=== PATIENT | male | born 2000 | race Caucasian/White ===

== ENCOUNTER 2024-04-04 09:41 | Emergency (ER) | payer OTHER ==
[2024-04-04 09:51] VITALS: BP 126/92; PULSE 86; RESP 18; TEMP 97.2; BMI 29.9
[2024-04-04] MEDS ORDERED: KETOROLAC TROMETHAMINE 30 MG/1 ML VIAL ONE (10:18)
[2024-04-04] MEDS ORDERED: DEXAMETHASONE SOD PHOSPHATE 10 MG/1 ML VIAL ONE (10:18)
[2024-04-04] MEDS: DEXAMETHASONE SOD PHOSPHATE 10 MG/1 ML VIAL IM ONE (10:23)
[2024-04-04] MEDS: KETOROLAC TROMETHAMINE 30 MG/1 ML VIAL IM ONE (10:23)
== END 2024-04-04 11:59 | disposition home or self-care (01) ==
LOC: JERFT 09:41
PROC: 3E023GC Introduction of Other Therapeutic Substance into Muscle, Percutaneous Approach (ICD-10-PCS; principal; 2024-04-04)
PROC: 3E0133Z Introduction of Anti-inflammatory into Subcutaneous Tissue, Percutaneous Approach (ICD-10-PCS; 2024-04-04)
DX: M43.16 Spondylolisthesis, lumbar region (principal); M51.26 Other intervertebral disc displacement, lumbar region; Z20.822 Contact with and (suspected) exposure to COVID-19
CPT/HCPCS: 0241U-QW; 72131-TC; 99284-25; J1100

== ENCOUNTER 2025-01-25 04:05 | Emergency (ER) | payer OTHER ==
[2025-01-25 04:11] VITALS: BP 128/88; RESP 20; TEMP 97.7; BMI 32.1
[2025-01-25 04:27] VITALS: PULSE 102
[2025-01-25] MEDS ORDERED: DEXAMETHASONE 4 MG TABLET (FP) ONE (04:57)
[2025-01-25] MEDS: DEXAMETHASONE 4 MG TABLET (FP) PO ONE (05:06)
[2025-01-25] MEDS: ALBUTEROL SO4 2.5/IPRATROPIUM 0.5 INH SOL 3 ML VIAL.NEB. NEB SCH (05:06)
[2025-01-25] MEDS ORDERED: ALBUTEROL SO4 2.5/IPRATROPIUM 0.5 INH SOL 3 ML VIAL.NEB. NEB ONE (05:55)
== END 2025-01-25 06:14 | disposition home or self-care (01) ==
LOC: JER 04:05
PROC: 3E0F7GC Introduction of Other Therapeutic Substance into Respiratory Tract, Via Natural or Artificial Opening (ICD-10-PCS; principal; 2025-01-25)
DX: J45.909 Unspecified asthma, uncomplicated (principal); R06.02 Shortness of breath; R09.81 Nasal congestion; R00.0 Tachycardia, unspecified; R06.03 Acute respiratory distress
CPT/HCPCS: 99283-25